=== PATIENT | male | born 1970 | race Caucasian/White ===

== ENCOUNTER 2017-05-21 15:36 | Inpatient (IN) | payer BC, OTHER ==
[~2017-05-21] VITALS: Ht 177.8 cm; Wt 89.4 kg
[2017-05-21] MEDS ORDERED: ATOR10TA PO (20:43)
[2017-05-21] MEDS ORDERED: LEVE1000 PO (20:44)
[2017-05-21] MEDS ORDERED: Z GUARD REMEDY PASTE 57 GM TUBE TOP PRN (20:45)
[2017-05-21] MEDS ORDERED: ACET-637 PO (20:45)
[2017-05-21 20:46] VITALS: BP 127/76
[2017-05-21] MEDS ORDERED: ALLO100T PO (20:47)
[2017-05-21] MEDS ORDERED: ASPI-605 PO (20:47)
[2017-05-21] MEDS ORDERED: BACL10TA PO (20:48)
[2017-05-21] MEDS ORDERED: CHOL400T32 PO (20:49)
[2017-05-21] MEDS ORDERED: FOLI1TAB16 PO (20:53)
[2017-05-21] MEDS ORDERED: FAMO20TA8 PO (20:53)
[2017-05-21] MEDS ORDERED: MELA3TAB PO (20:53)
[2017-05-21] MEDS ORDERED: DOCU100C36 PO (20:53)
[2017-05-21] MEDS ORDERED: LISI2.5T2 PO (20:53)
[2017-05-21] MEDS ORDERED: POLY15DR27 OP (20:59)
--- NOTE | 2017-05-21 21:00 | NUR ---
ADMITTED PT FROM [facility] BY ANDREW, PT ALERT, ORIENTED, NOTED WITH EXPRESSIVE APHASIA RIGHT SIDED WEAKNESS, RIGHT ARM FLACCID. SKIN INTACT, SCAR NOTED FROM OLD GT AND TRACHE SITE. VSS,AFEBRILE, WILL CONTINUE TO MONITOR, BED ALARM ACTIVE, SCD APPLIED.CALL LIGHT AT REACHED
[2017-05-21] MEDS ORDERED: POLYVINYL ALCOHOL OPHT DROPS 15 ML BOTTLE EACHEYE PRN (21:45)
[2017-05-21] MEDS ORDERED: ACETAMINOPHEN ES 500 MG TABLET PO PRN (21:45)
--- NOTE | 2017-05-22 06:30 | NUR ---
pt slept well overnight,no void after last night x1, kept clean and dry,vss,afebrile. no significant changes overnight,lab drawn this morning. kept attended.
[2017-05-22 07:30] VITALS: BP 156/73
--- NOTE | 2017-05-22 08:10 | NUR ---
Received patient awake, alert. With expressive aphasia, but able to call for needs. Is able to answer yes and no questions. BP-156/73 AR-62. Due medications given.
[2017-05-22] MEDS: ASPIRIN EC 81 MG TABLET.DR PO SCH (08:51)
[2017-05-22] MEDS: DOCUSATE SODIUM 100 MG CAPSULE PO SCH ×2 (08:51→20:11)
[2017-05-22] MEDS: FOLIC ACID 1 MG TABLET PO SCH (08:51)
[2017-05-22] MEDS: LEVETIRACETAM 500 MG TABLET PO SCH ×2 (08:52→20:11)
[2017-05-22] MEDS: ALLOPURINOL 100 MG TABLET PO SCH (08:52)
[2017-05-22] MEDS: BACLOFEN 10 MG TABLET PO SCH ×3 (08:52→17:11)
[2017-05-22] MEDS: FAMOTIDINE 20 MG TABLET PO SCH (08:52)
[2017-05-22] MEDS: CHOLECALCIFEROL 400 UNITS TABLET PO SCH (08:53)
[2017-05-22] MEDS: LISINOPRIL 5 MG TABLET PO SCH (08:53)
--- NOTE | 2017-05-22 09:30 | NUR ---
Evelyn-care done, with moderate soaking. BP 110/80. WA 78. Up with occupational therapy for evaluation.
[2017-05-22 10:14] VITALS: BP 110/80
[2017-05-22] MEDS ORDERED: MELATONIN 3 MG TABLET PO PRN (11:45)
--- NOTE | 2017-05-22 12:50 | NUR ---
Facial grimacing during turning noted. Asked if in pain he said ye. PRN Tylenol given.
--- NOTE | 2017-05-22 16:35 | NUR ---
Tolerated therapy well. Maintained Ankle and foot brace upon transfers and ambulation. Offered urinal every 2 hrs. Asleep, non-labored breathing, Call light within reach.
[2017-05-22] MEDS: HYDROCORTISONE 1% OINT 28.35 GM TUBE TOP PRN (17:11)
--- NOTE | 2017-05-22 19:30 | NUR ---
PT ALERT AND ORIENTED IN BED. NO DISTRESS NOTED. HOB ELEVATED. OFFERED URINAL TO THE PT FOR BLADDER TRAINING, PT REFUSED AT THIS TIME. TURNED AND REPOSITIONED. CLEAN AND DRY. SAFETY MAINTAINED. CALL LIGHT WITHIN REACH.
[2017-05-22] MEDS: ATORVASTATIN 10 MG TABLET PO SCH (20:11)
[2017-05-22 21:02] VITALS: BP 117/55
--- NOTE | 2017-05-23 06:55 | NUR ---
PT RESTING IN BED. NO DISTRESS NOTED. NO SIGNIFICANT CHANGES THROUGHOUT THE NIGHT. OFFERED URINAL THROUGHOUT THE NIGHT FOR BLADDER TRAINING. UNABLE TO URINATE IN URINAL. CLEAN AND DRY. TURNED AND REPOSITIONED. SAFETY MAINTAINED. CALL LIGHT WITHIN REACH.
[2017-05-23 07:15] VITALS: BP 119/75
--- NOTE | 2017-05-23 08:30 | NUR ---
Received patient awake and alert. Still with expressive aphasia, prompting done. Encouraged to call for needs. Denied any pain. Call light within reach.
[2017-05-23] MEDS: DOCUSATE SODIUM 100 MG CAPSULE PO SCH ×2 (09:15→21:16)
[2017-05-23] MEDS: ALLOPURINOL 100 MG TABLET PO SCH (09:15)
[2017-05-23] MEDS: FAMOTIDINE 20 MG TABLET PO SCH (09:16)
[2017-05-23] MEDS: ASPIRIN EC 81 MG TABLET.DR PO SCH (09:16)
[2017-05-23] MEDS: LEVETIRACETAM 500 MG TABLET PO SCH ×2 (09:16→21:16)
[2017-05-23] MEDS: BACLOFEN 10 MG TABLET PO SCH ×3 (09:17→17:35)
[2017-05-23] MEDS: LISINOPRIL 5 MG TABLET PO SCH (09:17)
[2017-05-23] MEDS: CHOLECALCIFEROL 400 UNITS TABLET PO SCH (09:17)
[2017-05-23] MEDS: FOLIC ACID 1 MG TABLET PO SCH (09:23)
--- NOTE | 2017-05-23 18:01 | NUR ---
Was able to tolerate therapy well. With family at bedside. Offered urinal every 2 hrs. Oral care and caroline care done.
[2017-05-23 20:32] VITALS: BP 111/63
[2017-05-23] MEDS: ATORVASTATIN 10 MG TABLET PO SCH (21:16)
--- NOTE | 2017-05-24 06:42 | NUR ---
PT SLEPT WELL OVERNIGHT, NO BM ,INCONTINENT WITH MINIMAL URINE NOTED ON DIAPER, DENIES ANY PAIN ,VSS,AFEBRILE, KEPT RIGHT ARM ELEVATED DUE TO SWELLING.ALL NEEDS ATTENDED, REPOSITIONED,BED ALARM ACTIVE AT ALL TIMES.
[2017-05-24 07:45] VITALS: BP 107/57
[2017-05-24] MEDS: ASPIRIN EC 81 MG TABLET.DR PO SCH (09:27)
[2017-05-24] MEDS: LEVETIRACETAM 500 MG TABLET PO SCH ×2 (09:27→20:57)
[2017-05-24] MEDS: DOCUSATE SODIUM 100 MG CAPSULE PO SCH ×2 (09:28→20:56)
[2017-05-24] MEDS: BACLOFEN 10 MG TABLET PO SCH ×3 (09:28→17:28)
[2017-05-24] MEDS: ALLOPURINOL 100 MG TABLET PO SCH (09:29)
[2017-05-24] MEDS: LISINOPRIL 5 MG TABLET PO SCH (09:29)
[2017-05-24] MEDS: CHOLECALCIFEROL 400 UNITS TABLET PO SCH (09:30)
[2017-05-24] MEDS: FAMOTIDINE 20 MG TABLET PO SCH (09:30)
[2017-05-24] MEDS: FOLIC ACID 1 MG TABLET PO SCH (09:30)
--- NOTE | 2017-05-24 18:00 | NUR ---
patient alert and ox3 with expressive aphasia. Participated in all therapy- tolerating well.
--- NOTE | 2017-05-24 19:30 | NUR ---
Received pt on bed, awake and alert. No acute distress noted. No c/o pain or discomfort. Breathing even and unlabored with normal respirations. Call light within reach. All needs attended. Will continue to monitor
[2017-05-24] MEDS: ATORVASTATIN 10 MG TABLET PO SCH (20:57)
[2017-05-24 21:02] VITALS: BP 106/57
--- NOTE | 2017-05-25 06:52 | NUR ---
Patient slept well throughout the shift. No acute distress noted. Denies pain. Breathing even and unlabored with normal respirations. kept clean, dry and comfortable. All needs attended. Will continue to monitor.
[2017-05-25] MEDS: DOCUSATE SODIUM 100 MG CAPSULE PO SCH ×2 (09:00→21:18)
[2017-05-25] MEDS: FOLIC ACID 1 MG TABLET PO SCH (09:44)
[2017-05-25] MEDS: LEVETIRACETAM 500 MG TABLET PO SCH ×2 (09:44→21:19)
[2017-05-25] MEDS: CHOLECALCIFEROL 400 UNITS TABLET PO SCH (09:44)
[2017-05-25] MEDS: LISINOPRIL 5 MG TABLET PO SCH (09:44)
[2017-05-25] MEDS: BACLOFEN 10 MG TABLET PO SCH ×3 (09:45→18:08)
[2017-05-25] MEDS: ASPIRIN EC 81 MG TABLET.DR PO SCH (09:45)
[2017-05-25] MEDS: ALLOPURINOL 100 MG TABLET PO SCH (09:45)
[2017-05-25] MEDS: FAMOTIDINE 20 MG TABLET PO SCH (09:51)
--- NOTE | 2017-05-25 15:39 | NUR ---
Senior Bioinformatics Scientist Bio: SW met with patient at bedside to assess for needs and provide support. Pt is a 46-yearold male admitted to ARU for significant functional deficits and impaired ambulation after suffering a severe hemorrhagic stroke. SW asked pt what brought him to the hospital, however pt was unable to speak in complete sentences. Per chart, patient has expressive aphasia. Psych: Pt appeared alert and oriented during interview. SW could not confirm if pt was oriented to person, date, place, and situation, due to pt's expressive aphasia. Pt reported that he is feeling "good." ''Social: Pt is unmarried with no children. Pt stated that he receives support from his cousin and that she visits often. Pt reports feeling supported by family. Goals: Pt was unable to express a goal at this time. SS: SW provided pt with emotional support and counseling. SW will provide linkage to case management (home health). SW will encourage pt to comply with rehab goals.
[2017-05-25 20:27] VITALS: BP 113/73
[2017-05-25] MEDS: ATORVASTATIN 10 MG TABLET PO SCH (21:18)
--- NOTE | 2017-05-26 06:00 | NUR ---
PT SLEPT EARLY LAST NIGHT, DENIES ANY PAIN OR DISCOMFORT OVERNIGHT, VSS,AFEBRILE, NO CHANGES, NO BM. WILL CONTINUE TO MONITOR, BED ALARM ACTIVE AT ALL TIMES
[2017-05-26 08:00] VITALS: BP 120/59
[2017-05-26] MEDS: FOLIC ACID 1 MG TABLET PO SCH (08:26)
[2017-05-26] MEDS: ASPIRIN EC 81 MG TABLET.DR PO SCH (08:27)
[2017-05-26] MEDS: BACLOFEN 10 MG TABLET PO SCH ×3 (08:27→16:53)
[2017-05-26] MEDS: FAMOTIDINE 20 MG TABLET PO SCH (08:27)
[2017-05-26] MEDS: LISINOPRIL 5 MG TABLET PO SCH (08:28)
[2017-05-26] MEDS: CHOLECALCIFEROL 400 UNITS TABLET PO SCH (08:28)
[2017-05-26] MEDS: ALLOPURINOL 100 MG TABLET PO SCH (08:28)
[2017-05-26] MEDS: LEVETIRACETAM 500 MG TABLET PO SCH ×2 (08:28→21:03)
[2017-05-26] MEDS: DOCUSATE SODIUM 100 MG CAPSULE PO SCH ×2 (08:35→21:03)
--- NOTE | 2017-05-26 14:38 | NUR ---
Rehab Team Conference 05/26/17
--- NOTE | 2017-05-26 18:05 | NUR ---
Dr. Sandoval in the unit and rounded with to patients room; full report given, no orders received.
--- NOTE | 2017-05-26 20:00 | NUR ---
RECEIVED PT. W/ EXPRESSIVE APHASIA, ALERT & ORIENTED X3. R ARM IS FLACCID & SEVERE WEAKNESS ON R LOWER EXTREMITY. DENIES PAIN. REPOSITIONED AFTER HS CARE DONE W/ HOB ELEVATED. ON RM AIR W/ O2 SAT OF 96%. NOT IN ANY DISTRESS.
[2017-05-26 20:31] VITALS: BP 124/71
[2017-05-26] MEDS: ATORVASTATIN 10 MG TABLET PO SCH (21:02)
--- NOTE | 2017-05-27 06:00 | NUR ---
SLEPT WELL ALL NIGHT. NOT IN ANY DISTRESS. DENIES PAIN.
[2017-05-27 08:00] VITALS: BP 122/77
[2017-05-27] MEDS ORDERED: METOCLOPRAMIDE HCL 10 MG/10 ML UDC PO ONE (09:00)
[2017-05-27] MEDS: LEVETIRACETAM 500 MG TABLET PO SCH ×2 (09:05→21:17)
[2017-05-27] MEDS: FOLIC ACID 1 MG TABLET PO SCH (09:05)
[2017-05-27] MEDS: ASPIRIN EC 81 MG TABLET.DR PO SCH (09:05)
[2017-05-27] MEDS: BACLOFEN 10 MG TABLET PO SCH ×3 (09:06→17:46)
[2017-05-27] MEDS: FAMOTIDINE 20 MG TABLET PO SCH (09:07)
[2017-05-27] MEDS: CHOLECALCIFEROL 400 UNITS TABLET PO SCH (09:08)
[2017-05-27] MEDS: ALLOPURINOL 100 MG TABLET PO SCH (09:08)
[2017-05-27] MEDS: DOCUSATE SODIUM 100 MG CAPSULE PO SCH ×2 (09:15→21:17)
[2017-05-27] MEDS: LISINOPRIL 5 MG TABLET PO SCH (09:16)
--- NOTE | 2017-05-27 10:30 | NUR ---
Pt left the floor via wheelchair with physical therapy and family for doctor's appointment at [facility]. movement therapist aware. Pt stable and nad noted upon leaving the unit.
--- NOTE | 2017-05-27 16:55 | NUR ---
Spoke with Suha (daughter) on the telephone and stated that she is on her way back to the hospital with the pt.
--- NOTE | 2017-05-27 17:45 | NUR ---
Pt returned to the unit and nad noted upon returning.
[2017-05-27 20:45] VITALS: BP 119/68
[2017-05-27] MEDS: ATORVASTATIN 10 MG TABLET PO SCH (21:16)
--- NOTE | 2017-05-28 07:15 | NUR ---
Pt received in bed, sleeping no acute distress noted. HOB elevated, call light and personal belongings at the bedside. Klaus kept low and locked.
[2017-05-28 07:49] VITALS: BP 119/77
[2017-05-28] MEDS: ASPIRIN EC 81 MG TABLET.DR PO SCH (09:05)
[2017-05-28] MEDS: FOLIC ACID 1 MG TABLET PO SCH (09:05)
[2017-05-28] MEDS: CHOLECALCIFEROL 400 UNITS TABLET PO SCH (09:05)
[2017-05-28] MEDS: ALLOPURINOL 100 MG TABLET PO SCH (09:06)
[2017-05-28] MEDS: LEVETIRACETAM 500 MG TABLET PO SCH ×2 (09:06→22:18)
[2017-05-28] MEDS: LISINOPRIL 5 MG TABLET PO SCH (09:06)
[2017-05-28] MEDS: DOCUSATE SODIUM 100 MG CAPSULE PO SCH ×2 (09:06→22:18)
[2017-05-28] MEDS: FAMOTIDINE 20 MG TABLET PO SCH (09:06)
[2017-05-28] MEDS: BACLOFEN 10 MG TABLET PO SCH ×3 (09:06→17:00)
--- NOTE | 2017-05-28 17:13 | NUR ---
pt refused baclofen, states he feels nauseous, medications offered for nausea and refused. will monitor closely.
--- NOTE | 2017-05-28 18:24 | NUR ---
PT SEEN BY DR. MORAN, WITH ORDERS FOR CBC, CMP IN AM. HE WAS MADE AWARE OF NAUSEA EPISODE.
[2017-05-28 19:00] LABS: BASOPHILS % (AUTO) 0.4 % (0.0-2.0); EOSINOPHILS # (AUTO) 0.1 K/uL (0.0-0.7); EOSINOPHILS % (AUTO) 0.6 % (0.0-7.0); HEMATOCRIT 42.3 % (40-50); HEMOGLOBIN 13.6 G/DL (14.0-18.0); LYMPHOCYTES # (AUTO) 2.9 K/UL (0.8-4.8); LYMPHOCYTES % (AUTO) 23.5 % (20.5-51.5); MEAN CORPUSCULAR HEMOGLOBIN 27.5 UUG (27.0-31.0); MEAN CORPUSCULAR HGB CONC 32 g/dL (32.0-37.0); MEAN CORPUSCULAR VOLUME 85.5 FL (82.0-92.0); MONOCYTES # (AUTO) 0.6 K/UL (0.1-1.30); MONOCYTES % (AUTO) 4.7 % (0.0-11.0); NEUTROPHILS # (AUTO) 8.6 K/UL (1.8-8.9); NEUTROPHILS % (AUTO) 70.8 % (38.5-71.5); PLATELET COUNT (AUTO) 343 K/UL (150-450); RED BLOOD CELL COUNT(AUTO) 4.95 MIL/UL (4.7-6.1); WHITE BLOOD COUNT (AUTO) 12.2 K/UL (4.0-11.2)
[2017-05-28 19:06] LABS: BILIRUBIN,TOTAL 0.4 mg/dL (0.2-1.0); CREATININE 1.3 mg/dL (0.6-1.3); POTASSIUM 3.6 mmol/L (3.5-5.1); TOTAL PROTEIN, SERUM 7.9 g/dL (6.4-8.2)
[2017-05-28 21:01] VITALS: BP 116/66
[2017-05-28] MEDS: ATORVASTATIN 10 MG TABLET PO SCH (22:18)
--- NOTE | 2017-05-29 01:50 | NUR ---
20:00 Received SBAR report. Assessed pt and documented. Pt resting in with HOB 40 degrees. On Aspiration and fall precautions. Able to swallow water and medication without problem. No cough noted post drinking water. perrla pupil 4mm brisk response b/l. able to follow simple command. He has right facial droop,right arm flaccid, left math and physics instructor 3/5, able to raise LE left and right with effort till count of 5. He has expressive aphasia. No nausea noted. BS are present, abdomen is distended but soft. 2300: No BM changed pt, he is incontinent of urine. Skin care done pads changed and new sheets applied. turning q2hrs. No acute distress. continue to monitor. Addendum: 05/29/17 at 0513 by DANA WILSON RN No changes. Sleeping. No seizure activity noted.
[2017-05-29 08:57] VITALS: BP 97/57
[2017-05-29] MEDS: LISINOPRIL 5 MG TABLET PO SCH (09:00)
[2017-05-29] MEDS: DOCUSATE SODIUM 100 MG CAPSULE PO SCH ×2 (11:56→20:59)
[2017-05-29] MEDS: ASPIRIN EC 81 MG TABLET.DR PO SCH (11:56)
[2017-05-29] MEDS: LEVETIRACETAM 500 MG TABLET PO SCH ×2 (11:56→20:59)
[2017-05-29] MEDS: FAMOTIDINE 20 MG TABLET PO SCH (11:57)
[2017-05-29] MEDS: FOLIC ACID 1 MG TABLET PO SCH (11:58)
[2017-05-29] MEDS: CHOLECALCIFEROL 400 UNITS TABLET PO SCH (11:58)
[2017-05-29] MEDS: BACLOFEN 10 MG TABLET PO SCH ×3 (11:59→17:39)
[2017-05-29] MEDS: ALLOPURINOL 100 MG TABLET PO SCH (12:11)
[2017-05-29 20:23] VITALS: BP 108/68
[2017-05-29] MEDS: ATORVASTATIN 10 MG TABLET PO SCH (20:59)
--- NOTE | 2017-05-30 05:37 | NUR ---
AAO x 1 responds to his name. answers yes, no and yoko yoko yoko. No changes, No seizure activity noted. No acute distress during this shift. Swallows medication without problem. No new neuro changes noted. No acute distress continue to monitor.
[2017-05-30 07:30] VITALS: BP 114/61
--- NOTE | 2017-05-30 08:00 | NUR ---
RECEIVED PT. FROM NOC SHIFT W/ EXPRESSIVE APHASIA, ALERT & ORIENTED X3. R ARM IS FLACCID & SEVERE WEAKNESS ON R LOWER EXTREMITY. DENIES PAIN. REPOSITIONED AND HOB ELEVATED. ON RM AIR W/ O2 SAT OF 96%. NOT IN ANY DISTRESS AT THIS TIME.
[2017-05-30] MEDS: LEVETIRACETAM 500 MG TABLET PO SCH ×2 (10:05→21:31)
[2017-05-30] MEDS: FOLIC ACID 1 MG TABLET PO SCH (10:06)
[2017-05-30] MEDS: ALLOPURINOL 100 MG TABLET PO SCH (10:06)
[2017-05-30] MEDS: ASPIRIN EC 81 MG TABLET.DR PO SCH (10:06)
[2017-05-30] MEDS: BACLOFEN 10 MG TABLET PO SCH ×3 (10:06→17:16)
[2017-05-30] MEDS: CHOLECALCIFEROL 400 UNITS TABLET PO SCH (10:07)
[2017-05-30] MEDS: FAMOTIDINE 20 MG TABLET PO SCH (10:07)
[2017-05-30] MEDS: LISINOPRIL 5 MG TABLET PO SCH (10:07)
[2017-05-30] MEDS: DOCUSATE SODIUM 100 MG CAPSULE PO SCH ×2 (10:08→21:31)
--- NOTE | 2017-05-30 18:00 | NUR ---
STABLE AT THIS TIME. WILL ENDORSE TO NOC SHIFT TO CONTINUE CARE.
--- NOTE | 2017-05-30 19:30 | NUR ---
PT ALERT AND ORIENTED IN BED. NO DISTRESS NOTED. CLEAN AND DRY. FAMILY AT BEDSIDE. COMPLIANT WITH NURSING CARE. SAFETY MAINTAINED. CALL LIGHT WITHIN REACH.
[2017-05-30 21:09] VITALS: BP 110/61
[2017-05-30] MEDS: ATORVASTATIN 10 MG TABLET PO SCH (21:31)
--- NOTE | 2017-05-31 07:06 | NUR ---
PT RESTING IN BED. NO DISTRESS NOTED. SLEPT WELL THROUGHOUT THE NIGHT. NO SIGNIFICANT CHANGES. CLEAN AND DRY. TURNED AND REPOSITIONED. SAFETY MAINTAINED. CALL LIGHT WITHIN REACH.
[2017-05-31 07:30] VITALS: BP 102/63
--- NOTE | 2017-05-31 07:30 | NUR ---
received patient on bed. resting comfortable. no distress noted.
[2017-05-31] MEDS: LISINOPRIL 5 MG TABLET PO SCH (09:00)
[2017-05-31] MEDS: ASPIRIN EC 81 MG TABLET.DR PO SCH (10:01)
[2017-05-31] MEDS: DOCUSATE SODIUM 100 MG CAPSULE PO SCH ×2 (10:01→20:52)
[2017-05-31] MEDS: FOLIC ACID 1 MG TABLET PO SCH (10:01)
[2017-05-31] MEDS: BACLOFEN 10 MG TABLET PO SCH ×3 (10:02→17:13)
[2017-05-31] MEDS: CHOLECALCIFEROL 400 UNITS TABLET PO SCH (10:02)
[2017-05-31] MEDS: FAMOTIDINE 20 MG TABLET PO SCH (10:02)
[2017-05-31] MEDS: ALLOPURINOL 100 MG TABLET PO SCH (10:03)
[2017-05-31] MEDS: LEVETIRACETAM 500 MG TABLET PO SCH ×2 (10:13→20:52)
--- NOTE | 2017-05-31 12:00 | NUR ---
up chair of therapy , cooperative.
--- NOTE | 2017-05-31 19:30 | NUR ---
did well with lot of therapy today. family at bedside , supoortive of care
--- NOTE | 2017-05-31 19:30 | NUR ---
PT ALERT AND ORIENTED IN BED. NO DISTRESS NOTED. AFO INTACT ON RIGHT ARM. FAMILY AT BEDSIDE. CLEAN AND DRY. SAFETY MAINTAINED. CALL LIGHT WITHIN REACH.
[2017-05-31 20:22] VITALS: BP 125/50
[2017-05-31] MEDS: ATORVASTATIN 10 MG TABLET PO SCH (20:52)
--- NOTE | 2017-06-01 06:47 | NUR ---
PT RESTING IN BED. NO DISTRESS NOTED. NO SIGNIFICANT CHANGES THROUGHOUT THE NIGHT. COMPLIANT WITH NURSING CARE. SLEPT WELL. CLEAN AND DRY. SAFETY MAINTAINED. CALL LIGHT WITHIN REACH.
[2017-06-01 07:35] VITALS: BP 118/67
[2017-06-01] MEDS: FOLIC ACID 1 MG TABLET PO SCH (09:20)
[2017-06-01] MEDS: BACLOFEN 10 MG TABLET PO SCH ×3 (09:20→16:48)
[2017-06-01] MEDS: DOCUSATE SODIUM 100 MG CAPSULE PO SCH ×2 (09:20→20:37)
[2017-06-01] MEDS: ALLOPURINOL 100 MG TABLET PO SCH (09:20)
[2017-06-01] MEDS: ASPIRIN EC 81 MG TABLET.DR PO SCH (09:21)
[2017-06-01] MEDS: CHOLECALCIFEROL 400 UNITS TABLET PO SCH (09:21)
[2017-06-01] MEDS: LISINOPRIL 5 MG TABLET PO SCH (09:21)
[2017-06-01] MEDS: LEVETIRACETAM 500 MG TABLET PO SCH ×2 (09:21→20:37)
[2017-06-01] MEDS: FAMOTIDINE 20 MG TABLET PO SCH (09:21)
--- NOTE | 2017-06-01 18:59 | NUR ---
pt ahd bm and voided to the bathroom with assist. no changes in nih. pt adhered to therapy and took meds as precribed. pt continued to have expressive aphasia. pt given call light to call for assistance. pt seen by doctor no new orders. will endorse changes to obstetrics teacher nurse.
--- NOTE | 2017-06-01 19:30 | NUR ---
Report received. Patient PAT, able to follow commands but slow to answer questions. With expressive aphasia and significant R hemiparesis. NAD noted. Addendum: 06/02/17 at 0153 by CHRISTINA GENTILE RN Amended: Links added.
[2017-06-01 20:07] VITALS: BP 110/55
[2017-06-01] MEDS: ATORVASTATIN 10 MG TABLET PO SCH (20:37)
--- NOTE | 2017-06-01 21:00 | NUR ---
Up to the BR with assist. Voided and able to perform self care such as brushing his teeth and washing his face with L arm. R am flaccid. Tolerated ambulation fairly well. Addendum: 06/02/17 at 0200 by CHRISTINA GENTILE RN Amended: Links added.
--- NOTE | 2017-06-02 06:58 | NUR ---
Slept very well during the night. NAD noted.
[2017-06-02 08:00] VITALS: BP 102/43
[2017-06-02] MEDS: ALLOPURINOL 100 MG TABLET PO SCH (09:00)
[2017-06-02] MEDS: LISINOPRIL 5 MG TABLET PO SCH (09:00)
[2017-06-02] MEDS: LEVETIRACETAM 500 MG TABLET PO SCH ×2 (09:00→21:33)
[2017-06-02] MEDS: FOLIC ACID 1 MG TABLET PO SCH (09:01)
[2017-06-02] MEDS: FAMOTIDINE 20 MG TABLET PO SCH (09:01)
[2017-06-02] MEDS: BACLOFEN 10 MG TABLET PO SCH ×3 (09:01→17:49)
[2017-06-02] MEDS: CHOLECALCIFEROL 400 UNITS TABLET PO SCH (09:01)
[2017-06-02] MEDS: DOCUSATE SODIUM 100 MG CAPSULE PO SCH ×2 (09:01→21:33)
[2017-06-02] MEDS: ASPIRIN EC 81 MG TABLET.DR PO SCH (09:03)
[2017-06-02] MEDS: HYDROCORTISONE 1% OINT 28.35 GM TUBE TOP PRN (09:04)
--- NOTE | 2017-06-02 13:42 | NUR ---
PT ASSESSED AND VITALS TAKEN. WITHHELD BP MEDS DUE TO DECREASED BLOOD PRESSURE. PT CONTINUED TO HAVE EXPRESSIVE APHASIA. ATTENDED TO NEEDS AND ASSISTED ON TRANSFERS. TOOK MEDS PRESCRIBED. NO SIGNS OF DISTRESS. WILL CONTINUE TO MONITOR.
--- NOTE | 2017-06-02 14:47 | NUR ---
Rehab Team Conference 06/02/17
--- NOTE | 2017-06-02 19:04 | NUR ---
pt stable throughout the day. no changes in NIH scale. pt helped with transfers and adhered to therapy. pt used urinal at times to void. pt used splint to prevent contractures and used afo to prevent foot drop. will endorse new orders to mold shifter.
[2017-06-02 20:00] VITALS: BP 120/65
[2017-06-02] MEDS: ATORVASTATIN 10 MG TABLET PO SCH (21:33)
[2017-06-03 08:44] VITALS: BP 177/74
[2017-06-03] MEDS: BACLOFEN 10 MG TABLET PO SCH ×3 (09:07→17:08)
[2017-06-03] MEDS: CHOLECALCIFEROL 400 UNITS TABLET PO SCH (09:07)
[2017-06-03] MEDS: ASPIRIN EC 81 MG TABLET.DR PO SCH (09:09)
[2017-06-03] MEDS: LISINOPRIL 5 MG TABLET PO SCH (09:09)
[2017-06-03] MEDS: LEVETIRACETAM 500 MG TABLET PO SCH ×2 (09:10→21:13)
[2017-06-03] MEDS: DOCUSATE SODIUM 100 MG CAPSULE PO SCH ×2 (09:10→21:13)
[2017-06-03] MEDS: ALLOPURINOL 100 MG TABLET PO SCH (09:10)
[2017-06-03] MEDS: FOLIC ACID 1 MG TABLET PO SCH (09:10)
[2017-06-03] MEDS: FAMOTIDINE 20 MG TABLET PO SCH (09:10)
--- NOTE | 2017-06-03 09:10 | NUR ---
Pt alert, awake, and sitting comfortably watching tv. Pt assessed, with no s/s of acute distress present. No changes in NIH, instructed pt to use call light for additional needs. Morning medications administered as ordered, bp 127/74, hr 60, all other v/s stable. Call light within reach and all safety measures applied. Determined today's goal to be independent exercises as recommended by pt. Will continue to monitor.
--- NOTE | 2017-06-03 15:51 | NUR ---
pt seen to have redness on right elbow probably due to pt not being able to move right arm. applied mepilex. no signs of infection. will continue to monitor.
--- NOTE | 2017-06-03 18:07 | NUR ---
Pt remains stable throughout duration of shift. No changes to NIH score. PT complied with all medication administration and PT/OT therapies. No acute distress noted on this shift. Upon arrival of family, visitor accompanied PT to eat dinner in the unit dinning room. Assisted back into bed. All safety and comfort measures met, and call light within reach. Will continue to monitor.
--- NOTE | 2017-06-03 19:20 | NUR ---
nsg: pt received awake, alert, in bed. denies discomfort. RUE flaccid, wears a splint. RLE weakness. able to move LUE/LLE. has difficulty expressing his needs. one direction given at a time. call light within reach. bed alarm on. dvt pumps in place.
[2017-06-03 20:00] VITALS: BP 110/51
[2017-06-03] MEDS: ATORVASTATIN 10 MG TABLET PO SCH (21:13)
[2017-06-03] MEDS: HYDROCORTISONE 1% OINT 28.35 GM TUBE TOP PRN (21:13)
--- NOTE | 2017-06-04 05:55 | NUR ---
NSG: No acute distress noted. denies discomfort. all needs attended. kept clean and dry.
[2017-06-04 08:00] VITALS: BP 110/64
--- NOTE | 2017-06-04 09:30 | NUR ---
Pt awake, alert, and oriented. States had difficulty working TV last night. V/S stable, and reassessed upon administration of routine morning medications with 115/64 BP and 65 hr, BP medication given. No change in NIH and no s/s of acute distress noted at this time. All safety and comfort measures met. Will continue to monitor.
[2017-06-04] MEDS: ASPIRIN EC 81 MG TABLET.DR PO SCH (09:48)
[2017-06-04] MEDS: FAMOTIDINE 20 MG TABLET PO SCH (09:50)
[2017-06-04] MEDS: DOCUSATE SODIUM 100 MG CAPSULE PO SCH ×2 (09:50→20:41)
[2017-06-04] MEDS: BACLOFEN 10 MG TABLET PO SCH ×3 (09:50→17:00)
[2017-06-04] MEDS: LISINOPRIL 5 MG TABLET PO SCH (09:51)
[2017-06-04] MEDS: CHOLECALCIFEROL 400 UNITS TABLET PO SCH (09:51)
[2017-06-04] MEDS: ALLOPURINOL 100 MG TABLET PO SCH (09:51)
[2017-06-04] MEDS: LEVETIRACETAM 500 MG TABLET PO SCH ×2 (09:51→20:41)
[2017-06-04] MEDS: FOLIC ACID 1 MG TABLET PO SCH (10:11)
--- NOTE | 2017-06-04 19:04 | NUR ---
Pt. has continued to remain in stable condition through this shift. No complaints of pain. No changes in NIH score. Assisted Pt in verbalizing needs r/t expressive aphasia. Participated in therapies. Aspiration and seizure precautions implemented. Will continue to monitor and endorse oncology specialist nurse of status.
--- NOTE | 2017-06-04 19:30 | NUR ---
Report received. Patient awake, alert, no acute distress noted. Assessment done. Addendum: 06/05/17 at 0009 by CHRISTINA GENTILE RN Amended: Links added.
[2017-06-04 20:31] VITALS: BP 108/50
[2017-06-04] MEDS: ATORVASTATIN 10 MG TABLET PO SCH (20:40)
--- NOTE | 2017-06-04 21:00 | NUR ---
Up to the BR with assistive device and EQUIPMENT INSTALLER's assistance. PM self care performed by patient. Safety measures implemented at all times. With significant, chronic expressive aphasia. Addendum: 06/05/17 at 0014 by CHRISTINA GENTILE RN Amended: Links added.
--- NOTE | 2017-06-04 21:25 | NUR ---
Back to bed without problems. R hand splint applied; patient cooperative. Able to move fingers but otherwise flaccid.
--- NOTE | 2017-06-05 07:00 | NUR ---
Slept well during the night. REAL.
[2017-06-05 09:34] VITALS: BP 119/55
[2017-06-05] MEDS: ALLOPURINOL 100 MG TABLET PO SCH (09:48)
[2017-06-05] MEDS: LEVETIRACETAM 500 MG TABLET PO SCH ×2 (09:48→20:38)
[2017-06-05] MEDS: CHOLECALCIFEROL 400 UNITS TABLET PO SCH (09:48)
[2017-06-05] MEDS: FAMOTIDINE 20 MG TABLET PO SCH (09:49)
[2017-06-05] MEDS: ASPIRIN EC 81 MG TABLET.DR PO SCH (09:49)
[2017-06-05] MEDS: LISINOPRIL 5 MG TABLET PO SCH (09:49)
[2017-06-05] MEDS: FOLIC ACID 1 MG TABLET PO SCH (09:49)
[2017-06-05] MEDS: BACLOFEN 10 MG TABLET PO SCH ×3 (09:49→16:48)
[2017-06-05] MEDS: DOCUSATE SODIUM 100 MG CAPSULE PO SCH ×2 (10:23→20:38)
[2017-06-05] MEDS: ATORVASTATIN 10 MG TABLET PO SCH (20:38)
[2017-06-05 21:01] VITALS: BP 109/57
[2017-06-06 07:28] VITALS: BP 116/69
[2017-06-06] MEDS: CHOLECALCIFEROL 400 UNITS TABLET PO SCH (08:47)
[2017-06-06] MEDS: DOCUSATE SODIUM 100 MG CAPSULE PO SCH ×2 (08:47→20:17)
[2017-06-06] MEDS: FAMOTIDINE 20 MG TABLET PO SCH (08:47)
[2017-06-06] MEDS: LEVETIRACETAM 500 MG TABLET PO SCH ×2 (08:47→20:17)
[2017-06-06] MEDS: ALLOPURINOL 100 MG TABLET PO SCH (08:47)
[2017-06-06] MEDS: FOLIC ACID 1 MG TABLET PO SCH (08:48)
[2017-06-06] MEDS: ASPIRIN EC 81 MG TABLET.DR PO SCH (08:48)
[2017-06-06] MEDS: LISINOPRIL 5 MG TABLET PO SCH (08:48)
[2017-06-06] MEDS: BACLOFEN 10 MG TABLET PO SCH ×3 (08:48→16:39)
[2017-06-06 20:00] VITALS: BP 106/51
[2017-06-06] MEDS: ATORVASTATIN 10 MG TABLET PO SCH (20:17)
[2017-06-07 07:35] VITALS: BP 115/61
--- NOTE | 2017-06-07 08:30 | NUR ---
Pt. seem following report. Upon assessment Pt is sitting up right comfortably in bed, expressive aphasia present. v/s WNL, no acute distress noted at this time. Aspiration and Seizure precautions in place. Call light placed within reach. Will continue to monitor.
[2017-06-07] MEDS: DOCUSATE SODIUM 100 MG CAPSULE PO SCH ×2 (09:02→20:51)
[2017-06-07] MEDS: ASPIRIN EC 81 MG TABLET.DR PO SCH (09:02)
[2017-06-07] MEDS: CHOLECALCIFEROL 400 UNITS TABLET PO SCH (09:02)
[2017-06-07] MEDS: FOLIC ACID 1 MG TABLET PO SCH (09:03)
[2017-06-07] MEDS: FAMOTIDINE 20 MG TABLET PO SCH (09:05)
[2017-06-07] MEDS: LEVETIRACETAM 500 MG TABLET PO SCH ×2 (09:06→20:51)
[2017-06-07] MEDS: BACLOFEN 10 MG TABLET PO SCH ×3 (09:07→17:41)
[2017-06-07] MEDS: ALLOPURINOL 100 MG TABLET PO SCH (09:08)
[2017-06-07] MEDS: LISINOPRIL 5 MG TABLET PO SCH (09:09)
--- NOTE | 2017-06-07 18:47 | NUR ---
pt ablet to participate in therapy during shift. pt able to use call light for help. assisted ad needed. pt changed and assisted to the bathroom as needed. pt took meds as precribed. no seizures noted. no changes in NIH scale. pt continues to communicate using communication aids. pt had no signs of complications vitals stable. will endorse new developments to operation shift supervisor nurse.
[2017-06-07 20:22] VITALS: BP 120/60
[2017-06-07] MEDS: ATORVASTATIN 10 MG TABLET PO SCH (20:51)
--- NOTE | 2017-06-08 08:09 | NUR ---
Pt. awake, alert, and oriented, sitting comfortably in bed eating breakfast. SBAR report received and Pt assessed. No acute distress noted at this time. Skin intact. Call light placed within reach and plan for the day discussed with Pt. Will continue to monitor.
[2017-06-08] MEDS: CHOLECALCIFEROL 400 UNITS TABLET PO SCH (08:42)
[2017-06-08] MEDS: ASPIRIN EC 81 MG TABLET.DR PO SCH (08:42)
[2017-06-08 08:43] VITALS: BP 123/71
[2017-06-08] MEDS: FOLIC ACID 1 MG TABLET PO SCH (08:43)
[2017-06-08] MEDS: DOCUSATE SODIUM 100 MG CAPSULE PO SCH ×2 (08:43→20:31)
[2017-06-08] MEDS: FAMOTIDINE 20 MG TABLET PO SCH (08:44)
[2017-06-08] MEDS: LEVETIRACETAM 500 MG TABLET PO SCH ×2 (08:44→20:31)
[2017-06-08] MEDS: BACLOFEN 10 MG TABLET PO SCH ×3 (08:46→16:56)
[2017-06-08] MEDS: ALLOPURINOL 100 MG TABLET PO SCH (08:46)
[2017-06-08] MEDS: LISINOPRIL 5 MG TABLET PO SCH (09:43)
--- NOTE | 2017-06-08 11:00 | NUR ---
Pt assisted with application of AFO splint to right leg and hand splint to right wrist for ambulation. Assisted to toilet. Linens changed. Pt returned to bed and both splints removed. Call light placed within reach, and Pt verbalized understanding to call when in need of assistance. Will continue to monitor.
--- NOTE | 2017-06-08 17:59 | NUR ---
Pt. continues to remain in stable condition. No change in NIH score. Pt compliant with administration of all routine medications. Encouraged verbal communication of needs to counter expressive aphasia. Aspiration and seizure precautions implemented. Pt. repositioned and changed with LEARNING SOLUTIONS SPECIALIST assist. Will continue to monitor and endorse cv tech of current status.
[2017-06-08 20:17] VITALS: BP 118/62
[2017-06-08] MEDS: ATORVASTATIN 10 MG TABLET PO SCH (20:31)
--- NOTE | 2017-06-09 07:45 | NUR ---
Patient noted sitting up in bed watching tv, no signs of distress noted, denies pain at this time,call light in reach, bed locked and in lowest position.
[2017-06-09 07:50] LABS: BASOPHILS % (AUTO) 0.6 % (0.0-2.0); EOSINOPHILS # (AUTO) 0.1 K/uL (0.0-0.7); EOSINOPHILS % (AUTO) 1.2 % (0.0-7.0); HEMATOCRIT 41.5 % (40-50); HEMOGLOBIN 13.6 G/DL (14.0-18.0); LYMPHOCYTES # (AUTO) 3.5 K/UL (0.8-4.8); LYMPHOCYTES % (AUTO) 45.3 % (20.5-51.5); MEAN CORPUSCULAR HGB CONC 33 g/dL (32.0-37.0); MEAN CORPUSCULAR VOLUME 85.7 FL (82.0-92.0); MONOCYTES # (AUTO) 0.5 K/UL (0.1-1.30); NEUTROPHILS # (AUTO) 3.5 K/UL (1.8-8.9); NEUTROPHILS % (AUTO) 46.9 % (38.5-71.5); PLATELET COUNT (AUTO) 300 K/UL (150-450); RED BLOOD CELL COUNT(AUTO) 4.85 MIL/UL (4.7-6.1); WHITE BLOOD COUNT (AUTO) 7.6 K/UL (4.0-11.2)
[2017-06-09] MEDS: CHOLECALCIFEROL 400 UNITS TABLET PO SCH (08:17)
[2017-06-09] MEDS: ALLOPURINOL 100 MG TABLET PO SCH (08:17)
[2017-06-09] MEDS: LEVETIRACETAM 500 MG TABLET PO SCH (08:17)
[2017-06-09] MEDS: BACLOFEN 10 MG TABLET PO SCH ×3 (08:17→17:01)
[2017-06-09] MEDS: ASPIRIN EC 81 MG TABLET.DR PO SCH (08:17)
[2017-06-09] MEDS: FAMOTIDINE 20 MG TABLET PO SCH (08:17)
[2017-06-09] MEDS: DOCUSATE SODIUM 100 MG CAPSULE PO SCH (08:17)
[2017-06-09] MEDS: FOLIC ACID 1 MG TABLET PO SCH (08:19)
[2017-06-09 08:20] VITALS: BP 104/54
[2017-06-09 08:26] LABS: BILIRUBIN,TOTAL 0.3 mg/dL (0.2-1.0); MAGNESIUM 1.9 mg/dL (1.8-2.4); POTASSIUM 3.9 mmol/L (3.5-5.1); TOTAL PROTEIN, SERUM 7.4 g/dL (6.4-8.2)
--- NOTE | 2017-06-09 08:30 | NUR ---
Lisinopril 2.5 mg held due to patients blood pressure of 104/54
[2017-06-09 09:00] VITALS: BP 105/54
[2017-06-09] MEDS: LISINOPRIL 5 MG TABLET PO SCH (09:00)
[2017-06-09 09:05] LABS: THYROID STIMULATING HORMONE 2.618 mIU/mL (0.358-3.740)
--- NOTE | 2017-06-09 13:51 | NUR ---
CM: Yolie Carter RN Patient family does not wish for patient to go to [facility] after visiting facility. Patient is now requesting to take patient home with home health. Home health will be provided through [facility]
--- NOTE | 2017-06-09 18:30 | NUR ---
patient awake in wheelchair, Family member Suha Jessica is taking patient home, patient left at 1830, patient given discharge instructions, exit care provided (smoking cessation, seizures, CVA). Copy provided to family member, patient given prescriptions as prescribed by doctor Ramos, copy provided and faxed to pharmacy( [facility]). Family member verbalizes understanding of discharge instructions, all belongings sent home with and belongings list signed by patient, Ipad not present, family member Suha states she took it with her, patient assisted and transferring patient to private car. 118/63 B/P, 60pulse, 97.8 F, 100% O2, no signs of complications
== END 2017-06-09 18:30 | disposition home health service (06) | DRG 57 ==
PROVIDERS: ADMIT Physical Medicine & Rehabilitation Pain Medicine; ATTEND Physical Medicine & Rehabilitation Pain Medicine
DX: I69.251 Hemiplegia and hemiparesis following other nontraumatic intracranial hemorrhage affecting right dominant side (principal); D68.59 Other primary thrombophilia; G40.89 Other seizures; R47.01 Aphasia; I10 Essential (primary) hypertension; I69.220 Aphasia following other nontraumatic intracranial hemorrhage; I69.292 Facial weakness following other nontraumatic intracranial hemorrhage; M21.371 Foot drop, right foot; M24.571 Contracture, right ankle; R32 Unspecified urinary incontinence; M10.9 Gout, unspecified; R26.9 Unspecified abnormalities of gait and mobility; Z68.28 Body mass index [BMI] 28.0-28.9, adult; E79.0 Hyperuricemia without signs of inflammatory arthritis and tophaceous disease; E66.3 Overweight; R47.02 Dysphasia; I69.298 Other sequelae of other nontraumatic intracranial hemorrhage
CPT/HCPCS: 36415; 70030-TC; 83735; 84100; 84443; 85025; 92507; 92523; 97110; 97112; 97116; 97165; 97530; 97535; J8597